=== PATIENT | male | born 1950 | race Asian ===

== ENCOUNTER 2018-05-13 19:43 | Inpatient (IN) | payer OTHER ==
--- NOTE | 2018-05-13 19:50 | PDOC ---
Rapid Medical Evaluation Time Seen by Provider: 05/13/18 19:47 Medical Evaluation: Allergies Allergy/AdvReac Type Severity Reaction Status Date / Time No Known Allergies Allergy Verified 01/29/14 03:05 I have performed a brief in-person evaluation of this patient. The patient presents with a chief complaint of: high blood pressure today. 154 /104. patient also complains of headache. hasn't taken his BP meds in 3 days Pertinent physical exam findings: none I have ordered the following: none The patient will proceed to the ED for further evaluation. Discharge Disposition - Diagnosis High blood pressure - Referrals - Patient Instructions - Post Discharge Activity
--- NOTE | 2018-05-13 20:40 | PDOC ---
History of Present Illness - History of Present Illness Initial Comments: 05/13/18 20:40 Patient is a 68 year old male with a PMH of HTN and CAD who presents to the ED this evening following an episode of resolved visual loss. Patient states he was at work when he noticed that he could only see 1/2 of his visual field. Patient is unable to identify whether visual loss was in one or both eyes. Visual loss resolved within 10 minutes. Denies any prior episodes of visual loss. Denies any current headache or blurry vision. Notes he hasn't taken his medications for the previous 3 days (daughter states he has not taken his medications for 1+ week). Has been evaluated by a side laster staple on prior occasion s/p cardiac catherization- was told no acute intervention was needed. Denies any chest pain, shortness of breath, abdominal pain, nausea/vomiting, diarrhea/constipation. NKDA Surgical: Cardiac cath Social: denies toxic habits PMD: Dr. Katie Coe Medications: Metoprolol Succinate (25 mg QD), Atorvastatin (20 mg QHS), ASA As per EMR, patient was last evaluated in our ED in 2013 for R hip pain and was diagnosed with avulsion fracture of anterior superior iliac spine. No prior evaluation in our ED for HTN, chest or CVA/TIA SiSx. <Anayeli Bowling - Last Filed: 05/13/18 22:48> <Amaris Wyatt - Last Filed: 05/14/18 02:14> - General Chief Complaint: Blood Pressure Problem Stated Complaint: Blood Pressure Problem Time Seen by Provider: 05/13/18 19:47 Past History - Past Medical History Cardiac Disorders: Yes COPD: No Diabetes: Yes HTN: Yes Hypercholesterolemia: Yes - Immunization History Td Vaccination: No - Suicide/Smoking/Psychosocial Hx Smoking Status: No Smoking History: Never smoked Have you smoked in the past 12 months: No Number of Cigarettes Smoked Daily: 0 Information on smoking cessation initiated: No Hx Alcohol Use: No Drug/Substance Use Hx: No Substance Use Type: None <Anayeli Bowling - Last Filed: 05/13/18 22:48> <Amaris Wyatt - Last Filed: 05/14/18 02:14> - Past Medical History Allergies/Adverse Reactions: Allergies Allergy/AdvReac Type Severity Reaction Status Date / Time No Known Allergies Allergy Verified 05/13/18 23:14 Home Medications: Ambulatory Orders Ibuprofen [Motrin -] 600 mg PO TID PRN #21 tablet 01/29/14 Oxycodone HCl/Acetaminophen [Percocet 5-325 mg Tablet -] 1 combo PO Q6H PRN #14 tablet 01/29/14 Review of Systems - Review of Systems Constitutional: No: Chills, Fever HEENTM: Yes: Recent change in vision Respiratory: No: Cough, Shortness of Breath Cardiac (ROS): No: Chest Pain, Lightheadedness, Palpitations, Syncope ABD/GI: No: Constipated, Diarrhea, Nausea, Vomiting : No: Burning, Dysuria <Anayeli Bowling - Last Filed: 05/13/18 22:48> *Physical Exam - Vital Signs Last Vital Signs Temp Pulse Resp BP Pulse Ox 97.9 F 69 20 153/77 100 05/13/18 19:52 05/13/18 19:52 05/13/18 19:52 05/13/18 19:52 05/13/18 19:52 - Physical Exam General Appearance: Yes: Nourished, Appropriately Dressed HEENT: positive: EOMI, JADYN, Normal Voice, Hearing Grossly Normal. negative: TM Bulging, TM Dull, TM Erythema Neck: positive: Trachea midline, Supple Respiratory/Chest: positive: Lungs Clear, Normal Breath Sounds. negative: Crackles, Wheezing Cardiovascular: positive: S1, S2. negative: Edema, JVD Gastrointestinal/Abdominal: positive: Normal Bowel Sounds, Soft. negative: Guarding, Rebound, Tenderness, Hernia, Mass Musculoskeletal: negative: CVA Tenderness (R), CVA Tenderness (L) Extremity: positive: Normal Capillary Refill, Normal Inspection, Normal Range of Motion Integumentary: positive: Normal Color, Dry, Warm Neurologic: positive: insolvency consultant II-XII NML intact, Fully Oriented, Alert, Motor Strength 5/5 <Anayeli Bowling - Last Filed: 05/13/18 22:48> - Vital Signs Last Vital Signs Temp Pulse Resp BP Pulse Ox 97.9 F 63 18 162/64 100 05/13/18 19:52 05/13/18 20:45 05/13/18 20:45 05/13/18 21:20 05/13/18 21:20 <Amaris Wyatt - Last Filed: 05/14/18 02:14> ED Treatment Course - LABORATORY CBC & Chemistry Diagram: 05/13/18 20:45 05/13/18 20:45 - RADIOLOGY Radiology Studies Ordered: Category Date Time Status CXRPORT [CHEST X-RAY PORTABLE*] [RAD] Stat Radiology 05/13/18 20:37 Ordered <Anayeli Bowling - Last Filed: 05/13/18 22:48> - LABORATORY CBC & Chemistry Diagram: 05/13/18 20:45 05/13/18 20:45 - ADDITIONAL ORDERS Additional order review: Laboratory Results 05/13/18 05/13/18 05/13/18 20:45 20:45 20:45 PT with INR 11.70 INR 0.99 PTT (Actin FS) 27.9 Sodium 137 Potassium 4.4 Chloride 110 H Carbon Dioxide 21 Anion Gap 5 L BUN 13 Creatinine 0.9 Creat Clearance w eGFR > 60 Random Glucose 109 H Calcium 8.4 L Total Bilirubin 0.4 AST 28 ALT 25 Alkaline Phosphatase 82 Creatine Kinase 109 Troponin I < 0.02 Total Protein 7.1 Albumin 3.4 05/13/18 20:45 RBC 5.02 MCV 83.4 MCHC 32.9 RDW 13.7 MPV 7.6 Neutrophils % 63.8 Lymphocytes % 29.7 D Monocytes % 4.8 Eosinophils % 1.0 D Basophils % 0.7 - Medications Given in the ED: ED Medications Discontinued Medications Generic Name Dose Route Start Last Admin Trade Name Freq PRN Reason Stop Dose Admin Atorvastatin Calcium 80 mg 05/13/18 22:11 05/13/18 22:45 Lipitor - PO 05/13/18 22:12 80 mg ONCE ONE Administration <Hossein Wyattnoemi Hernandezh - Last Filed: 05/14/18 02:14> Medical Decision Making - Medical Decision Making 05/13/18 20:57 68 year old male with amarosis fugax. H/o non-adherence to anti-hypertensive medications. Asymptomatic and hypertensive (SBP 160's) @ presentation. NIHSS Score 0. Differential diagnosis includes embolic disease including CVA/TIA, vasospasm 2/2 to migraine or macular degeneration. Will obtain CT head, basic labs, EKG, Troponin. Likely disposition is admission. Reassess. 05/13/18 22:27 CT head negative for acute ischemia Repeat BP 129/69 Patient and patient's family @ bedside counseled on plan of care. Case d/w patient's daughter by phone who is a medical student. Case discussed w/Dr. Regan neurology, agrees with admission and MRA/MRI + Carotid Dopplers in the a.m. Patient admitted to Dr. Jose Benjamin covering for patient's PMD Dr. Katie Coe <Anayeli Bowling - Last Filed: 05/13/18 22:48> *DC/Admit/Observation/Transfer <Anayeli Bowling - Last Filed: 05/13/18 22:48> <Amaris Wyatt - Last Filed: 05/14/18 02:14> Diagnosis at time of Disposition: High blood pressure
[2018-05-13 21:12] LABS: BASO % 0.7 % (0-2.0); HEMATOCRIT 41.9 % (35.4-49); HEMOGLOBIN 13.8 GM/dL (11.7-16.9); LYMPH % 29.7 % (8-40); MCH 27.4 pg (25.7-33.7); MCHC 32.9 g/dl (32.0-35.9); MEAN CELL VOLUME 83.4 fl (80-96); MEAN PLT VOLUME 7.6 fl (7.5-11.1); MONO % 4.8 % (3.8-10.2); NEUT % 63.8 % (42.8-82.8); PLATELET COUNT 325 K/MM3 (134-434); RBC 5.02 M/mm3 (4.00-5.60); RDW 13.7 % (11.9-15.9); WHITE BLOOD COUNT 7.6 K/mm3 (4.0-10.0)
[2018-05-13 21:31] LABS: INR 0.99 (0.83-1.09); PROTHROMBIN TIME (PATIENT) 11.7 SEC (9.7-13.0)
[2018-05-13 21:33] LABS: ACTIVATED PTT 27.9 SECONDS (25.2-36.5)
--- NOTE | 2018-05-13 21:47 | PDOC ---
Attending Attestation - Resident Resident Name: TawnyaAnayeli - ED Attending Attestation I have performed the following: I have examined & evaluated the patient, The case was reviewed & discussed with the resident, I agree w/resident's findings & plan, Exceptions are as noted - HPI HPI: 05/13/18 21:45 68 yo male reports losing his vision today for approximately 7 minutes PMH is significant for HTN ROS visual loss, also family reports "heartburn" for past 3 weeks 05/13/18 21:53 05/13/18 21:58 - Physicial Exam PE: 05/13/18 21:47 wnwd 68 yo male in no acute distress head ncat eyes rosendo eomi neck no jvd,no bruits lungs no wheezing abd flat,nontender skin warm and dry [id number] extremities full range of motion,no deformities neuro axox3,motor strength 5/5 b/l, no clonus ,no drift visual acuity pt currently hasno field cuts 05/13/18 21:52 05/13/18 21:55 - Medical Decision Making 05/13/18 21:59 ct scan no acute intracranial pathology no current visual loss Dr Regan ,neurology, was consulted and pt will be admitted for further work up including MRI brain pt 's PCP is Dr Katie Coe and Dr Farooq Benjamin will be admitting his patients
[2018-05-13 22:03] LABS: ALBUMIN 3.4 g/dl (3.4-5.0); ALK PHOS 82 U/L (45-117); ANION GAP 5 MMOL/L (8-16); BILIRUBIN,TOTAL 0.4 mg/dL (0.2-1); BLOOD UREA NITROGEN 13 mg/dL (7-18); CALCIUM 8.4 mg/dL (8.5-10.1); CHLORIDE 110 mmol/L (98-107); CO2 21 mmol/L (21-32); CREATININE 0.9 mg/dL (0.55-1.3); GLUCOSE,RANDOM 109 mg/dL (74-106); POTASSIUM 4.4 mmol/L (3.5-5.1); SGOT/AST 28 U/L (15-37); SGPT/ALT 25 U/L (13-61); SODIUM 137 mmol/L (136-145); TOT PROT 7.1 g/dl (6.4-8.2)
[2018-05-13] MEDS ORDERED: ACETAMINOPHEN 325 MG TABLET (FP) PO PRN (22:09)
[2018-05-13] MEDS ORDERED: oxyCODONE HCL 5 MG TABLET PO PRN (22:09)
[2018-05-13] MEDS ORDERED: ATORVASTATIN CA 80 MG TABLET (FP) PO ONE (22:11)
[2018-05-13] MEDS ORDERED: MAG HYDROX/AL HYDROX/SIMETH 30 ML UNIT-DOSE CUP PO PRN (22:12)
--- NOTE | 2018-05-13 22:48 | PDOC ---
NIH Stroke Scale - Last Known Well Date/Time & Onset Date Last Known Well: 05/13/18 Time Last Known Well: 19:00 - Initial Evaluation Level of consciousness: Alert Ask patient the month and their age: Answers both correctly Ask patient to open & close eyes; make fist and let go: Obeys both correctly Best gaze (horizontal eye movement): Normal Visual field testing: No visual field loss Facial paresis (Show teeth/raise eyebrows/close eyes tight): Normal symmetrical movement Motor Function: Left Arm: Normal Motor Function: Right Arm: Normal (extends arm 90 (or 45) degrees for 10 seconds without drift Motor Function: Left Leg: Normal (extends leg 30 degrees for 5 seconds without drift) Motor Function: Right Leg: Normal (extends leg 30 degrees for 5 seconds without drift) Limb Ataxia: No ataxia Sensory(Use pinprick test arms,legs,trunk,face/side to side): Normal Best language (Describe picture, name items, read sentences): No Aphasia Dysarthria (read several words): Normal articulation Extinction and Inattention: No abnormality - Total Score NIH Stroke Scale Score: 0
--- NOTE | 2018-05-14 02:06 | PDOC ---
tPA Exclusion Checklist 0-3hr - Time Elapsed Date last known well: 05/13/18 Time last known well: 16:00 Elaspsed time: Day(s) and 10 Hour(s) and 4 Minutes - Thrombolytic Therapy Candidate Is the patient eligible for Thrombolytic Therapy?: No - Exclusion Criteria 0-3hr SBP greater than 185 or DBP greater than 110mmHg despite tx: No Recent IC/spinal surgery,head trauma or stroke w/in last 3mo: No Hx of previous IC hemorrhage, IC neoplasm, AVM or aneurysm: No Active internal bleeding: No Blding diathesis(low plt ct, inc PTT,INR>1.7 or use of NOAC): No Symptoms suggest subarachnoid hemorrhage: No CT demonstrates multilobar infarct(>1/3 cerebral hemiphere): No Arterial puncture at noncompressible site in previous 7 days: No Blood glucose concentration less than 50mg/dL (2.7mmol/L): No - Relative Exclusion Criteria 0-3h Life expectancy <1yr/severe co-morbid illness/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
[2018-05-14 06:49] LABS: BASO % 0.4 % (0-2.0); EOS % 2.6 % (0-4.5); HEMATOCRIT 40.5 % (35.4-49); HEMOGLOBIN 13.3 GM/dL (11.7-16.9); LYMPH % 39.4 % (8-40); MCH 27.2 pg (25.7-33.7); MCHC 32.8 g/dl (32.0-35.9); MEAN CELL VOLUME 83.1 fl (80-96); MEAN PLT VOLUME 7.5 fl (7.5-11.1); MONO % 6.5 % (3.8-10.2); NEUT % 51.1 % (42.8-82.8); PLATELET COUNT 286 K/MM3 (134-434); RBC 4.87 M/mm3 (4.00-5.60); RDW 13.7 % (11.9-15.9); WHITE BLOOD COUNT 8.1 K/mm3 (4.0-10.0)
[2018-05-14 07:12] LABS: ALBUMIN 3.3 g/dl (3.4-5.0); ALK PHOS 74 U/L (45-117); ANION GAP 11 MMOL/L (8-16); BILIRUBIN,TOTAL 0.4 mg/dL (0.2-1); BLOOD UREA NITROGEN 13 mg/dL (7-18); CALCIUM 8.5 mg/dL (8.5-10.1); CHLORIDE 110 mmol/L (98-107); CO2 23 mmol/L (21-32); CREATININE 0.8 mg/dL (0.55-1.3); GLUCOSE,RANDOM 82 mg/dL (74-106); POTASSIUM 4.3 mmol/L (3.5-5.1); SGOT/AST 14 U/L (15-37); SGPT/ALT 20 U/L (13-61); SODIUM 143 mmol/L (136-145); TOT PROT 6.4 g/dl (6.4-8.2)
[2018-05-14 07:26] LABS: INR 1.01 (0.83-1.09); PROTHROMBIN TIME (PATIENT) 11.9 SEC (9.7-13.0)
[2018-05-14] MEDS ORDERED: ASPIRIN 81 MG CHEWABLE TABLETS ONE (09:14)
[2018-05-14] MEDS: ASPIRIN 81 MG CHEWABLE TABLETS PO SCH (09:20)
--- NOTE | 2018-05-14 10:06 | EKG ---
Test Reason : Blood Pressure : / mmHG Vent. Rate : 062 BPM Atrial Rate : 062 BPM P-R Int : 110 ms QRS Dur : 080 ms QT Int : 378 ms P-R-T Axes : 021 039 057 degrees QTc Int : 383 ms POOR DATA QUALITY, INTERPRETATION MAY BE ADVERSELY AFFECTED SINUS RHYTHM WITH SHORT VA OTHERWISE NORMAL ECG NO PREVIOUS ECGS AVAILABLE Confirmed by LALI MARS, DOROTA ([id number]) on 05/14/2018 10:05:42 AM Referred By: Confirmed By:DOROTA ESCALERA MD
--- NOTE | 2018-05-14 11:15 | CON.NEURO ---
Consult - History of Present Illness History of Present Illness: 68 year old male with a PMH of HTN and CAD who presents to the ED this evening following an episode of resolved visual loss. Patient states he was at work when he noticed that he could only see 1/2 of his visual fieldleft sided field cut Patient is unable to identify whether visual loss was in one or both eyes. Visual loss resolved within 10 minutes. Denies any prior episodes of visual loss. Denies any current headache or blurry vision. Notes he hasn't taken his medications for the previous 3 days (daughter states he has not taken his medications for 1+ week). Has been evaluated by a pot lining supervisor on prior occasion s/p cardiac catherization- was told no acute intervention was needed. Similar Sx 6 months back--did not speak to PMD re this,. Denies any chest pain, shortness of breath, abdominal pain, nausea/vomiting, diarrhea/constipation. CT HD (-) NKDA Surgical: Cardiac cath Social: denies toxic habits PMD: Dr. Katie Coe Medications: Metoprolol Succinate (25 mg QD), Atorvastatin (20 mg QHS), ASA - Alcohol/Substance Use Hx Alcohol Use: No - Smoking History Smoking history: Never smoked Have you smoked in the past 12 months: No Aproximately how many cigarettes per day: 0 Home Medications - Allergies Allergies/Adverse Reactions: Allergies Allergy/AdvReac Type Severity Reaction Status Date / Time No Known Allergies Allergy Verified 05/13/18 23:14 - Home Medications Home Medications: Ambulatory Orders Ibuprofen [Motrin -] 600 mg PO TID PRN #21 tablet 01/29/14 Physical Exam-Neuro Vital Signs: Vital Signs Temperature 98.2 F 05/14/18 08:42 Pulse Rate 60 05/14/18 08:42 Respiratory Rate 18 05/14/18 08:42 Blood Pressure 107/59 L 05/14/18 08:42 O2 Sat by Pulse Oximetry (%) 99 05/14/18 08:43 Labs: CBC, BMP 05/14/18 06:00 05/14/18 06:00 INR, PTT INR 1.01 (0.83-1.09) 05/14/18 06:00 - Neuro Exam Level Of Consciousness: Yes: Alert (EOMI, no clear field cut by confrontation testing, no facial, no dysrthria, no focal weakness, no ataxia ) Problem List - Problems (1) TIA (transient ischemic attack) Code(s): G45.9 - TRANSIENT CEREBRAL ISCHEMIC ATTACK, UNSPECIFIED (2) Left homonymous hemianopsia Code(s): H53.462 - HOMONYMOUS BILATERAL FIELD DEFECTS, LEFT SIDE Assessment/Plan 68 year old male with a PMH of HTN and CAD who presents to the ED this evening following an episode of resolved visual loss. Patient states he was at work when he noticed that he could only see 1/2 of his visual fieldleft sided field cut Patient is unable to identify whether visual loss was in one or both eyes. Visual loss resolved within 10 minutes. Denies any prior episodes of visual loss. Denies any current headache or blurry vision. Notes he hasn't taken his medications for the previous 3 days (daughter states he has not taken his medications for 1+ week). Has been evaluated by a pot lining supervisor on prior occasion s/p cardiac catherization- was told no acute intervention was needed. Similar Sx 6 months back--did not speak to PMD re this,. Denies any chest pain, shortness of breath, abdominal pain, nausea/vomiting, diarrhea/constipation. 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
[2018-05-14 14:26] LABS: CHOLESTEROL 205 mg/dL (50-200); HDL CHOLESTEROL 48 mg/dL (40-60); TRIGLYCERIDES 166 mg/dL (0-150)
--- NOTE | 2018-05-14 14:38 | ECHO ---
Version: 1 Name: SHANIA PAUL Exam: Adult Echocardiogram Study Date: 05/14/2018, 8:41 AM Age: 68 Years MMode/2D Measurements & Calculations IVSd: 0.65 cm LVIDs: 2.8 cm LVIDd: 4.5 cm LVPWd: 0.64 cm Ao root diam: 2.6 cm LA dimension: 3.5 cm Doppler Measurements & Calculations MV E max spike: 68.1 cm/sec Med E/e': 14.3 MV A max spike: 22.7 cm/sec Med Peak E' Spike: 4.8 cm/sec MV E/A: 3.0 Lat E/e': 7.1 Lat Peak E' Spike: 9.6 cm/sec MR max P.6 mmHg Ao max P.9 mmHg Ao V2 max: 140.7 cm/sec PI end-d spike: 88.6 cm/sec TR max spike: 198.8 cm/sec TR max P.8 mmHg Procedure A two-dimensional transthoracic echocardiogram with color flow and Doppler was performed. Left Ventricle The left ventricular size, thickness and function are normal. The left ventricular ejection fraction is normal. E/A reversal consistent with but not diagnostic of poor LV compliance. The left ventricular wall motion is normal. Right Ventricle The right ventricle is normal in size and function. Atria Normal left and right atrial size and function. Mitral Valve There is mild mitral valve thickening. There is no mitral valve stenosis. There is mild mitral regur gitation. Tricuspid Valve There is mild tricuspid valve thickening. There is no tricuspid stenosis. There is mild tricuspid regurgitation. Right ventricular systolic pressure is normal. Aortic Valve The aortic valve is normal in structure and function. No hemodynamically significant valvular aortic stenosis. No aortic regurgitation is present. Pulmonic Valve The pulmonic valve is not well visualized. There is no pulmonic valvular stenosis. Mild pulmonic ada vular regurgitation. Great Vessels The aortic root is normal size. Pericardium/Pleura There is no pericardial effusion. Summary Statements The left ventricular size, thickness and function are normal The left ventricular ejection fraction is normal. The left ventricular wall motion is normal. There is mild tricuspid regurgitation. Right ventricular systolic pressure is normal. E/A reversal consistent with but not diagnostic of poor LV compliance There is mild mitral regurgitation. MD Julian Martin 05/14/2018, 2:37 PM Ordering Physician: Cassidy Garcia Referring Physician: ASH BOJORQUEZ Performed By: Paula Dow
--- NOTE | 2018-05-14 15:55 | HP ---
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 History Source: Patient - Past Medical History Cardiovascular: Yes: CAD, HTN, Hyperlipdemia - Smoking History Smoking history: Never smoked Have you smoked in the past 12 months: No Aproximately how many cigarettes per day: 0 - Alcohol/Substance Use Hx Alcohol Use: No - Social History Usual Living Arrangement: Yes: With Spouse ADL: Independent Home Medications - Allergies Allergies/Adverse Reactions: Allergies Allergy/AdvReac Type Severity Reaction Status Date / Time No Known Allergies Allergy Verified 05/13/18 23:14 - Home Medications Home Medications: Ambulatory Orders Ibuprofen [Motrin -] 600 mg PO TID PRN #21 tablet 01/29/14 Family Disease History - Family Disease History Family History: Unremarkable Review of Systems - Review of Systems Constitutional: denies: Chills, Diaphoresis, Fever, Lethargy, Loss of Appetite Eyes: reports: Blurred Vision, Floaters. denies: Blind Spots, Recent Change in Vision HENT: denies: Difficult Swallowing, Ear Discharge, Toothache, Ringing in Ears Neck: denies: Decreased ROM, Lumps, Pain on Movement, Stiffness, Swollen Glands Cardiovascular: denies: Chest Pain, Edema, Palpitations Respiratory: denies: Cough, Exercise Intolerance, Hemoptysis Gastrointestinal: denies: Abdominal Pain, Bloating, Constipation Genitourinary: denies: Burning, Discharge, Dysuria Breasts: denies: Breast Implants Musculoskeletal: denies: Crepitus, Decreased ROM, Extremity Pain Integumentary: denies: Blister, Bruising, Change in Color Neurological: reports: Unsteady Gait, Other (Left sided visual field loss ( transient)). denies: Change in LOC, Change in Speech, Confusion, Numbness, Parasthesia, Pre-Existing Deficit, Seizure, Syncope, Tremors Endocrine: reports: No Symptoms, Excessive Sweating, Flushing, Increased Hunger Physical Examination Vital Signs: Vital Signs Temperature 98.2 F 05/14/18 08:42 Pulse Rate 60 05/14/18 08:42 Respiratory Rate 18 05/14/18 08:42 Blood Pressure 107/59 L 05/14/18 08:42 O2 Sat by Pulse Oximetry (%) 99 05/14/18 08:43 Constitutional: No: No Distress, Calm, Anxious Eyes: Yes: Conjunctiva Clear, EOM Intact, Cataracts, PERRL. No: Diplopia, Occular Prosthesis HENT: No: Atraumatic, Normocephalic Neck: No: Supple, Trachea Midline Cardiovascular: Yes: Regular Rate and Rhythm, S2, S3 Respiratory: Yes: Regular, CTA Bilaterally Gastrointestinal: Yes: Normal Bowel Sounds. No: Soft Musculoskeletal: No: Back Pain, Joint Stiffness, Joint Swelling Extremities: No: Amputation, Calf Tenderness Edema: No Peripheral Pulses: Right Dorsalis Pedis: 2+, Left Femoral: 2+ Neurological: Yes: WNL, Alert, Oriented, Cran Nerves II-XII Intact. No: Confusion, Dysarthria, Facial Droop, Lethargy, Loss of Sensation, Numbness, Paresthesia, Pre-Existing Deficit, Seizure ...Motor Strength: WNL, LUE, LLE, RUE, RLE Labs: CBC, BMP 05/14/18 06:00 05/14/18 06:00 CBC,CMP WBC 8.1 K/mm3 (4.0-10.0) 05/14/18 06:00 RBC 4.87 M/mm3 (4.00-5.60) 05/14/18 06:00 Hgb 13.3 GM/dL (11.7-16.9) 05/14/18 06:00 Hct 40.5 % (35.4-49) 05/14/18 06:00 MCV 83.1 fl (80-96) 05/14/18 06:00 MCH 27.2 pg (25.7-33.7) 05/14/18 06:00 MCHC 32.8 g/dl (32.0-35.9) 05/14/18 06:00 RDW 13.7 % (11.9-15.9) 05/14/18 06:00 Plt Count 286 K/MM3 (134-434) 05/14/18 06:00 MPV 7.5 fl (7.5-11.1) 05/14/18 06:00 Absolute Neuts (auto) 4.1 K/mm3 (1.5-8.0) 05/14/18 06:00 Neutrophils % 51.1 % (42.8-82.8) 05/14/18 06:00 Lymphocytes % 39.4 % (8-40) D 05/14/18 06:00 Monocytes % 6.5 % (3.8-10.2) 05/14/18 06:00 Eosinophils % 2.6 % (0-4.5) D 05/14/18 06:00 Basophils % 0.4 % (0-2.0) 05/14/18 06:00 Nucleated RBC % 0 % (0-0) 05/14/18 06:00 Sodium 143 mmol/L (136-145) 05/14/18 06:00 Potassium 4.3 mmol/L (3.5-5.1) 05/14/18 06:00 Chloride 110 mmol/L (98-107) H 05/14/18 06:00 Carbon Dioxide 23 mmol/L (21-32) 05/14/18 06:00 Anion Gap 11 MMOL/L (8-16) 05/14/18 06:00 BUN 13 mg/dL (7-18) 05/14/18 06:00 Creatinine 0.8 mg/dL (0.55-1.3) 05/14/18 06:00 Creat Clearance w eGFR > 60 (>60) 05/14/18 06:00 Random Glucose 82 mg/dL (74-106) 05/14/18 06:00 Hemoglobin A1c % 5.7 % (4.2-6.3) 05/14/18 06:00 Calcium 8.5 mg/dL (8.5-10.1) 05/14/18 06:00 Total Bilirubin 0.4 mg/dL (0.2-1) 10/03/18 06:00 AST 14 U/L (15-37) L 05/14/18 06:00 ALT 20 U/L (13-61) 05/14/18 06:00 Alkaline Phosphatase 74 U/L (45-117) 05/14/18 06:00 Creatine Kinase 109 IU/L (26-308) 05/13/18 20:45 Troponin I < 0.02 ng/ml (0.00-0.05) 05/13/18 20:45 Total Protein 6.4 g/dl (6.4-8.2) 05/14/18 06:00 Albumin 3.3 g/dl (3.4-5.0) L 05/14/18 06:00 Triglycerides 166 mg/dL (0-150) H 05/14/18 06:00 Cholesterol 205 mg/dL (50-200) H 05/14/18 06:00 Total LDL Cholesterol 139 mg/dL (5-100) H 05/14/18 06:00 HDL Cholesterol 48 mg/dL (40-60) 05/14/18 06:00 TSH 2.12 uIU/ml (0.358-3.74) 05/14/18 06:00 Imaging - Results X-ray: Report Reviewed (Normal) Cat Scan: Report Reviewed (Negative) Ultrasound: Report Reviewed (Carotids; Mosderate plaques) EKG: Report Reviewed (NSR at [address] chnages) Problem List - Problems (1) Left homonymous hemianopsia Assessment/Plan: Most likely TIA ABCD2 score low considering H/O CAD admit for observation, serial neuro exam, Hold BP meds, add Statin Lipitor 80 mg statt and 40 mg Daily ASA, Neuro consult, ECHO, Telemonitoring, Carotid Doppler, MRI MRA Brain, no speech abnormality or no gait abnormality. Code(s): H53.462 - HOMONYMOUS BILATERAL FIELD DEFECTS, LEFT SIDE (2) TIA (transient ischemic attack) Assessment/Plan: Cont Current management Code(s): G45.9 - TRANSIENT CEREBRAL ISCHEMIC ATTACK, UNSPECIFIED (3) HTN (hypertension) Assessment/Plan: Hold BP meds for permissive HTN Code(s): I10 - ESSENTIAL (PRIMARY) HYPERTENSION Qualifiers: Hypertension type: essential hypertension Qualified Code(s): I10 - Essential (primary) hypertension (4) Hypercholesterolemia Assessment/Plan: F/U TSH and Lipid Panel F/U HBa!C Cont Statin Code(s): E78.00 - PURE HYPERCHOLESTEROLEMIA, UNSPECIFIED (5) CAD (coronary artery disease) Assessment/Plan: Cardiac cath > 5 yrs ago no intervention as per patient on Statin B Blockers and ASA, non complint LDL nOt on target Cpont Lipitor 40 and ASA normal Trop, Normal EKG no Symptoms. Code(s): I25.10 - ATHSCL HEART DISEASE OF [place] CORONARY ARTERY W/O ANG PCTRS
[2018-05-14] MEDS ORDERED: ATORVASTATIN CA 80 MG TABLET (FP) ONE (20:16)
[2018-05-15 05:44] VITALS: BMI 23.5
--- NOTE | 2018-05-15 10:08 | PN ---
Progress Note (short form) - Note Progress Note: 68 year old male with a PMH of HTN and CAD who presents to the ED this evening following an episode of resolved visual loss. Patient states he was at work when he noticed that he could only see 1/2 of his visual fieldleft sided field cut Patient is unable to identify whether visual loss was in one or both eyes. Visual loss resolved within 10 minutes. Denies any prior episodes of visual loss. Denies any current headache or blurry vision. Notes he hasn't taken his medications for the previous 3 days (daughter states he has not taken his medications for 1+ week). Has been evaluated by a finishing supervisor plastic sheets on prior occasion s/p cardiac catherization- was told no acute intervention was needed. Similar Sx 6 months back--did not speak to PMD re this,. Denies any chest pain, shortness of breath, abdominal pain, nausea/vomiting, diarrhea/constipation. CT HD (-) FU : no new issues or SX MRI reviewed- no acute stroke, prelim-WNL MRA HEAD prelim no clear stenosis/ABNL DOPPLER (-) - Alcohol/Substance Use Hx Alcohol Use: No - Smoking History Smoking history: Never smoked Have you smoked in the past 12 months: No Aproximately how many cigarettes per day: 0 Home Medications - Allergies Allergies/Adverse Reactions: Allergies Allergy/AdvReac Type Severity Reaction Status Date / Time No Known Allergies Allergy Verified 05/13/18 23:14 - Home Medications Home Medications: Ambulatory Orders Ibuprofen [Motrin -] 600 mg PO TID PRN #21 tablet 01/29/14 Physical Exam-Neuro Vital Signs: Vital Signs Temperature 98.4 F 05/15/18 05:59 Pulse Rate 58 L 05/15/18 05:59 Respiratory Rate 180 H 05/15/18 05:59 Blood Pressure 92/46 L 05/15/18 05:59 O2 Sat by Pulse Oximetry (%) 99 05/15/18 02:01 Labs: CBC, BMP 05/14/18 06:00 05/14/18 06:00 INR, PTT INR 1.01 (0.83-1.09) 05/14/18 06:00 - Neuro Exam Level Of Consciousness: Yes: Alert (EOMI, no clear field cut by confrontation testing, no facial, no dysrthria, no focal weakness, no ataxia ) Problem List - Problems (1) TIA (transient ischemic attack) Code(s): G45.9 - TRANSIENT CEREBRAL ISCHEMIC ATTACK, UNSPECIFIED (2) Left homonymous hemianopsia Code(s): H53.462 - HOMONYMOUS BILATERAL FIELD DEFECTS, LEFT SIDE Assessment/Plan 68 year old male with a PMH of HTN and CAD who presents to the ED this evening following an episode of resolved visual loss. Patient states he was at work when he noticed that he could only see 1/2 of his visual fieldleft sided field cut Patient is unable to identify whether visual loss was in one or both eyes. Visual loss resolved within 10 minutes. Denies any prior episodes of visual loss. Denies any current headache or blurry vision. Notes he hasn't taken his medications for the previous 3 days (daughter states he has not taken his medications for 1+ week). Has been evaluated by a finishing supervisor plastic sheets on prior occasion s/p cardiac catherization- was told no acute intervention was needed. Similar Sx 6 months back--did not speak to PMD re this,. Denies any chest pain, shortness of breath, abdominal pain, nausea/vomiting, diarrhea/constipation. CT HD (-) AP : r/o TIA in the right [facility] [employer]ER[facility]IST territory MRI (-), DOPPLER (-) ECHO WNL would get holter and lOOP ( can be outpt) ASA and statin for now clinically stable neuro cleared and can FU outpt [id number] DR PELLETIER Problem List - Problems (1) TIA (transient ischemic attack) Code(s): G45.9 - TRANSIENT CEREBRAL ISCHEMIC ATTACK, UNSPECIFIED (2) Left homonymous hemianopsia Code(s): H53.462 - HOMONYMOUS BILATERAL FIELD DEFECTS, LEFT SIDE
[2018-05-15] MEDS: ASPIRIN 81 MG CHEWABLE TABLETS PO SCH (10:16)
[2018-05-15] MEDS ORDERED: ASPIRIN 81 MG CHEWABLE TABLETS PO SCH (14:15)
[2018-05-15] MEDS ORDERED: LOSARTAN POTASSIUM 25 MG TABLET PO ONE ×2 (14:16)
--- NOTE | 2018-05-15 14:26 | DS ---
Physical Examination Vital Signs: Vital Signs Temperature 97.4 F L 05/15/18 10:00 Pulse Rate 62 05/15/18 10:00 Respiratory Rate 18 05/15/18 10:00 Blood Pressure 102/65 05/15/18 10:00 O2 Sat by Pulse Oximetry (%) 98 05/15/18 10:00 Constitutional: No: No Distress, Calm, Anxious Eyes: Yes: Conjunctiva Clear, EOM Intact, Cataracts, PERRL. No: Diplopia, Occular Prosthesis HENT: No: Atraumatic, Normocephalic Neck: No: Supple, Trachea Midline Cardiovascular: Yes: Regular Rate and Rhythm, S2, S3 Respiratory: Yes: Regular, CTA Bilaterally Gastrointestinal: Yes: Normal Bowel Sounds. No: Soft Musculoskeletal: No: Back Pain, Joint Stiffness, Joint Swelling Extremities: No: Amputation, Calf Tenderness Edema: No Peripheral Pulses: Right Dorsalis Pedis: 2+, Left Femoral: 2+ Neurological: Yes: WNL, Alert, Oriented, Cran Nerves II-XII Intact. No: Confusion, Dysarthria, Facial Droop, Lethargy, Loss of Sensation, Numbness, Paresthesia, Pre-Existing Deficit, Seizurres, Motor Strength: WNL, LUE, LLE, RUE , RLE Labs: CBC, BMP 05/14/18 06:00 05/14/18 06:00 Discharge Summary Reason For Visit: TRANSIENT VISUAL LOSS Current Active Problems CAD (coronary artery disease) (Acute) HTN (hypertension) (Acute) High blood pressure (Acute) Hypercholesterolemia (Acute) Left homonymous hemianopsia (Acute) TIA (transient ischemic attack) (Acute) Hospital Course: 8 yrs old non smoker man H/O hTN, Hypercholesterolemia,asymptomatic CAD ( single V Disease Cath > 5 yrs ago no intervention, non complaint with meds yesterday present to Ed after an episode of Left sided vision field defect that lasted for few minutes as per patient 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 ct haed, MRI are normal carotid Doppler b/l [place], ECHO normal, EKG normal Condition: Improved - Instructions Referrals: Katie Coe MD [Primary Care Provider] - 1 Week Disposition: HOME - Home Medications Comprehensive Discharge Medication List: Ambulatory Orders 30 Days #30 tab 05/15/18 Atorvastatin Ca [Lipitor] 40 mg PO HS #30 tablet 05/15/18 Losartan 25 mg daily 30 days
[2018-05-15 14:46] VITALS: BP 116/60; PULSE 70; TEMP 98.3
[2018-05-15] MEDS ORDERED: ATORVASTATIN CA 40 MG TABLET (FP) PO SCH (22:00)
== END 2018-05-15 15:00 | disposition home or self-care (01) | DRG 69 ==
LOC: JER 19:43 → JERBED 21:32 → J4S 05-15 00:40
PROVIDERS: ADMIT Internal Medicine; ATTEND Internal Medicine
DX: G45.9 Transient cerebral ischemic attack, unspecified (principal); H53.462 Homonymous bilateral field defects, left side; I10 Essential (primary) hypertension; E11.9 Type 2 diabetes mellitus without complications; I25.10 Atherosclerotic heart disease of native coronary artery without angina pectoris; E78.5 Hyperlipidemia, unspecified; Z91.14 Patient's other noncompliance with medication regimen
CPT/HCPCS: 36415; 70450-TC; 70544-TC; 70549-TC; 70551-TC; 71045-TC-FY; 80053; 80061; 82550; 83036; 83721; 84443; 84484; 85025; 85610; 85730; 93005; 93010; 93306-TC; 93880-TC; 97116-GP; 97161-GP; 99285-25

== ENCOUNTER 2020-08-04 02:35 | Emergency (ER) | payer OTHER ==
[2020-08-04 02:42] VITALS: BMI 24.5
[2020-08-04] MEDS ORDERED: DEXAMETHASONE 4 MG TABLET (FP) PO ONE (03:13)
[2020-08-04] MEDS ORDERED: DEXAMETHASONE 4 MG TABLET (FP) ONE (03:17)
[2020-08-04] MEDS ORDERED: ACETAMINOPHEN 500 MG TABLET (FP) PO ONE (05:07)
[2020-08-04] MEDS ORDERED: ACETAMINOPHEN 325 MG TABLET (FP) ONE (05:08)
[2020-08-04 05:16] VITALS: BP 137/69; PULSE 79; TEMP 99.5
== END 2020-08-04 05:16 | disposition home or self-care (01) ==
LOC: JER 02:35
DX: U07.1 COVID-19 (principal)
CPT/HCPCS: 71046-TC-FY; 93005; 93010; 99285-25; C9803; U0003